=== PATIENT | female | born 1985 | race Caucasian/White ===

== ENCOUNTER 2017-05-16 18:57 | Emergency (ER) | payer MEDICAID ==
--- NOTE | 2017-05-16 21:38 | EDM.PDOC ---
ED HPI GENERAL MEDICAL PROBLEM - General Chief Complaint: ENT Problem Stated Complaint: TOOTH PAIN RT SIDE Time Seen by Provider: 05/16/17 20:48 Source of Information: Reports: Patient History Limitations: Reports: No Limitations - History of Present Illness INITIAL COMMENTS - FREE TEXT/NARRATIVE: This patient comes in for the pain to the right lower jaw. It's been going on for a couple weeks and she was seen recently and put on an antibiotic. She doesn 't have anything for pain. She's supposed to see the dentist on June 05 but says that she is nearly disabled because of the pain. She says there is a hole in one of her teeth but she doesn't really know which one it is - Related Data Allergies Allergy/AdvReac Type Severity Reaction Status Date / Time Penicillins Allergy Hives Verified 05/16/17 20:18 Sulfa (Sulfonamide Allergy Hives Verified 05/16/17 20:18 Antibiotics) Home Meds: Home Meds Cetirizine [ZyrTEC] 10 mg PO DAILY 05/16/17 [History] Cholecalciferol (Vitamin D3) [Vitamin D] 5,000 unit PO DAILY 05/16/17 [History] Cranberry Conc/C/Bacill Coag [Cranberry Tablet] 1 each PO DAILY 05/16/17 [ History] Cyanocobalamin (Vitamin B12) [Vitamin B12] 1,000 mcg PO DAILY 05/16/17 [History] Escitalopram [Lexapro] 10 mg PO DAILY 05/16/17 [History] Fluticasone Propionate [Flonase Allergy Relief] 9.9 ml NS ASDIRECTED 05/16/17 [ History] Gabapentin [Neurontin] 300 mg PO TID 05/16/17 [History] LORazepam [Ativan] 1 mg PO Q6HR 05/16/17 [History] Levothyroxine [Levothroid] 137 mcg PO DAILY 05/16/17 [History] Magnesium 250 mg PO DAILY 05/16/17 [History] Omeprazole 20 mg PO DAILY 05/16/17 [History] Phentermine HCl 37.5 mg PO DAILY 05/16/17 [History] Promethazine [Phenergan] 12.5 mg PO Q6H PRN 05/16/17 [History] Propranolol [Inderal LA] 60 mg PO DAILY 05/16/17 [History] metFORMIN [Glucophage] 500 mg PO DAILY 05/16/17 [History] traZODone 50 mg PO BEDTIME 05/16/17 [History] Past Medical History Respiratory History: Reports: Other (See Below) Other Respiratory History: Feels like she is SOB at times just sitting on the couch Gastrointestinal History: Reports: GERD Genitourinary History: Reports: UTI, Recurrent 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 Neurological History: Reports: Head Trauma, Other (See Below) Other Neuro History: Found spot on brain that is leaking blood. Gets CT every 6 months Psychiatric History: Reports: Anxiety, Dementia, Panic Attack, Suicide Attempt Endocrine/Metabolic History: Reports: Hyperthyroidism, Obesity/BMI 30+, Other ( See Below) Other Endocrine/Metabolic History: Graves disease - Infectious Disease History Infectious Disease History: Reports: Chicken Pox - Past Surgical History HEENT Surgical History: Reports: Other (See Below) Other HEENT Surgeries/Procedures: nasal surgery on Jun 02 2017 Respiratory Surgical History: Reports: None Female Surgical History: Reports: Section, Hysterectomy Endocrine Surgical History: Reports: Thyroidectomy Musculoskeletal Surgical History: Reports: None Social & Family History - Tobacco Use Smoking Status *Q: Current Every Day Smoker Years of Tobacco use: 15 Packs/Tins Daily: 0.5 Second Hand Smoke Exposure: Yes - Caffeine Use Caffeine Use: Reports: Coffee, Soda - Recreational Drug Use Recreational Drug Use: No ED ROS ENT - Review of Systems Review Of Systems: ROS reveals no pertinent complaints other than HPI. ED EXAM, ENT - Physical Exam Exam: See Below Exam Limited By: No Limitations General Appearance: Alert, WD/WN, Mild Distress Eye Exam: Bilateral Eye: Normal Inspection Mouth/Throat: Other (No obvious dental caries or abscess are seen. There is some diffuse tenderness to the right mandible.) Course - Vital Signs Last Recorded V/S: Last Vital Signs Temp 35.7 C 05/16/17 20:11 Pulse 75 05/16/17 20:11 Resp 16 05/16/17 20:11 BP 112/66 05/16/17 20:11 Pulse Ox 98 05/16/17 20:11 Departure - Departure Time of Disposition: 21:36 Disposition: Home, Self-Care 01 Condition: Fair Clinical Impression: Pain, dental - Discharge Information Referrals: Tobin Villarreal PA [Primary Care Provider] - Forms: ED Department Discharge Additional Instructions: Follow-up in clinic tomorrow morning. For pain take Percocet 5/325 (#15 tablets ) one or 2 every 4 hours as needed. This medication can cause sedation and impair driving. Continue the antibiotic
== END 2017-05-16 21:45 | disposition home or self-care (01) ==
LOC: JP.ED 18:57
DX: K08.89 Other specified disorders of teeth and supporting structures (principal); K21.9 Gastro-esophageal reflux disease without esophagitis; E66.9 Obesity, unspecified; F17.210 Nicotine dependence, cigarettes, uncomplicated; Z88.2 Allergy status to sulfonamides; Z88.0 Allergy status to penicillin; Z79.899 Other long term (current) drug therapy; Z79.84 Long term (current) use of oral hypoglycemic drugs
CPT/HCPCS: 99283

== ENCOUNTER 2017-05-20 00:57 | Emergency (ER) | payer MEDICAID ==
[2017-05-20] MEDS ORDERED: Ketorolac 60 MG/2 ML SDV IM ONE (01:38)
[2017-05-20] MEDS ORDERED: Acetaminophen/Codeine 300-30 MG Tab PO ONE (01:38)
--- NOTE | 2017-05-20 01:44 | EDM.PDOC ---
ED HPI GENERAL MEDICAL PROBLEM - General Chief Complaint: ENT Problem Stated Complaint: MOUTH & TEETH PAIN Time Seen by Provider: 05/20/17 01:33 Source of Information: Reports: Patient History Limitations: Reports: No Limitations - History of Present Illness INITIAL COMMENTS - FREE TEXT/NARRATIVE: pt has a painful tooth in the rt upper incisor area. She also has a sore throat. She has been uncomfortable for a few days with the tooth. Onset: Gradual Duration: Hour(s): Location: Reports: Face, Other ( throat. ) Associated Symptoms: Reports: No Other Symptoms right tooth Pain Score (Numeric/FACES): 8 - Related Data Allergies Allergy/AdvReac Type Severity Reaction Status Date / Time Penicillins Allergy Hives Verified 05/20/17 01:17 Sulfa (Sulfonamide Allergy Hives Verified 05/20/17 01:17 Antibiotics) Home Meds: Home Meds Cetirizine [ZyrTEC] 10 mg PO DAILY 05/16/17 [History] Cholecalciferol (Vitamin D3) [Vitamin D] 5,000 unit PO DAILY 05/16/17 [History] Cranberry Conc/C/Bacill Coag [Cranberry Tablet] 1 each PO DAILY 05/16/17 [ History] Cyanocobalamin (Vitamin B12) [Vitamin B12] 1,000 mcg PO DAILY 05/16/17 [History] Escitalopram [Lexapro] 10 mg PO DAILY 05/16/17 [History] Fluticasone Propionate [Flonase Allergy Relief] 9.9 ml NS ASDIRECTED 05/16/17 [ History] Gabapentin [Neurontin] 300 mg PO TID 05/16/17 [History] LORazepam [Ativan] 1 mg PO Q6HR 05/16/17 [History] Levothyroxine [Levothroid] 137 mcg PO DAILY 05/16/17 [History] Magnesium 250 mg PO DAILY 05/16/17 [History] Omeprazole 20 mg PO DAILY 05/16/17 [History] Phentermine HCl 37.5 mg PO DAILY 05/16/17 [History] Promethazine [Phenergan] 12.5 mg PO Q6H PRN 05/16/17 [History] Propranolol [Inderal LA] 60 mg PO DAILY 05/16/17 [History] metFORMIN [Glucophage] 500 mg PO DAILY 05/16/17 [History] traZODone 50 mg PO BEDTIME 05/16/17 [History] Past Medical History Respiratory History: Reports: Other (See Below) Other Respiratory History: Feels like she is SOB at times just sitting on the couch Gastrointestinal History: Reports: GERD Genitourinary History: Reports: UTI, Recurrent 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 Neurological History: Reports: Head Trauma, Other (See Below) Other Neuro History: Found spot on brain that is leaking blood. Gets CT every 6 months Psychiatric History: Reports: Anxiety, Dementia, Panic Attack, Suicide Attempt Endocrine/Metabolic History: Reports: Hyperthyroidism, Obesity/BMI 30+, Other ( See Below) Other Endocrine/Metabolic History: Graves disease - Infectious Disease History Infectious Disease History: Reports: Chicken Pox - Past Surgical History HEENT Surgical History: Reports: Other (See Below) Other HEENT Surgeries/Procedures: nasal surgery on Jun 02 2017 Respiratory Surgical History: Reports: None Female Surgical History: Reports: Section, Hysterectomy Endocrine Surgical History: Reports: Thyroidectomy Musculoskeletal Surgical History: Reports: None Social & Family History - Tobacco Use Smoking Status *Q: Current Every Day Smoker Years of Tobacco use: 15 Packs/Tins Daily: 0.5 Second Hand Smoke Exposure: Yes - Caffeine Use Caffeine Use: Reports: None - Recreational Drug Use Recreational Drug Use: No ED ROS ENT - Review of Systems Review Of Systems: See Below Constitutional: Reports: Decreased Appetite HEENT: Reports: Dental Pain, Throat Pain, Throat Swelling Respiratory: Reports: No Symptoms Cardiovascular: Reports: No Symptoms Endocrine: Reports: No Symptoms GI/Abdominal: Reports: No Symptoms : Reports: No Symptoms Musculoskeletal: Reports: No Symptoms ED EXAM, ENT - Physical Exam Exam: See Below Text/Narrative:: pt arrived with pain in her rt upper tooth area. She also has a sore throat. Exam Limited By: No Limitations General Appearance: Alert, Anxious, Mild Distress Ears: Normal TMs Nose: Nasal Deformity Mouth/Throat: Dental Tenderness, Throat Pain, Throat Swelling, Tonsillar Erythema, Other (pt has a tender upper incisor area. pt has coating on her throat which looks like it could be yeast. She is on flonase. ) Head: Atraumatic Neck: Lymphadenopathy (R), Lymphadenopathy (L) Respiratory/Chest: No Respiratory Distress Cardiovascular: Regular Rate, Rhythm GI/Abdominal: Soft, Non-Tender Course - Vital Signs Last Recorded V/S: Last Vital Signs Temp 35.5 C 05/20/17 01:18 Pulse 76 05/20/17 01:18 Resp 15 05/20/17 01:18 BP 118/76 05/20/17 01:18 Pulse Ox 98 05/20/17 01:18 - Orders/Labs/Meds Orders: Active Orders 24 hr Category Date Time Status STREP SCRN A RAPID W CULT CONF [RM] Stat Lab 05/20/17 01:24 Ordered - Re-Assessments/Exams Free Text/Narrative Re-Assessment/Exam: 05/20/17 01:46 pt was given torodol 60mg im and tylenol 3 1 tab for pain. Departure - Departure Time of Disposition: 01:47 Disposition: Home, Self-Care 01 Condition: Fair Clinical Impression: Infected tooth, Acute pharyngitis - Discharge Information Referrals: PCP,None [Primary Care Provider] - Care Plan Goals: mycostatin susp irrigate mouth and throat tid, clindomycin 300mg tid, tylenol 3 1 tab q6h prn for pain dental referal for monMay 24. - My Orders Last 24 Hours: My Active Orders 05/20/17 01:24 STREP SCRN A RAPID W CULT CONF [RM] Stat - Assessment/Plan Last 24 Hours: My Active Orders 05/20/17 01:24 STREP SCRN A RAPID W CULT CONF [RM] Stat
== END 2017-05-20 02:00 | disposition home or self-care (01) ==
LOC: JP.ED 00:57
DX: K04.7 Periapical abscess without sinus (principal); J02.9 Acute pharyngitis, unspecified; F17.210 Nicotine dependence, cigarettes, uncomplicated; Z79.899 Other long term (current) drug therapy; Z88.0 Allergy status to penicillin; Z88.2 Allergy status to sulfonamides
CPT/HCPCS: 87081; 87430; 99283; A9270; J1885; 96372

== ENCOUNTER 2017-06-04 15:12 | Emergency (ER) | payer MEDICAID ==
--- NOTE | 2017-06-04 16:00 | EDM.PDOC ---
ED HPI GENERAL MEDICAL PROBLEM - General Chief Complaint: General Stated Complaint: WOUND PROBLEMS Time Seen by Provider: 06/04/17 15:57 Source of Information: Reports: Patient, Family, RN Notes Reviewed History Limitations: Reports: No Limitations - History of Present Illness INITIAL COMMENTS - FREE TEXT/NARRATIVE: 31-year-old female presents emergency department day complaint of facial pain she recently underwent sinus surgery has packing in place on the left naris she is scheduled to have that removed tomorrow, she uses using hydrocodone however it makes her sick to her stomach and does not want to take this pain medication nose Pain Score (Numeric/FACES): 9 - Related Data Allergies Allergy/AdvReac Type Severity Reaction Status Date / Time clindamycin Allergy Swelling Verified 06/04/17 15:32 Penicillins Allergy Hives Verified 05/20/17 01:17 Sulfa (Sulfonamide Allergy Hives Verified 05/20/17 01:17 Antibiotics) Home Meds: Home Meds Cetirizine [ZyrTEC] 10 mg PO DAILY 05/16/17 [History] Cholecalciferol (Vitamin D3) [Vitamin D] 5,000 unit PO DAILY 05/16/17 [History] Cranberry Conc/C/Bacill Coag [Cranberry Tablet] 1 each PO DAILY 05/16/17 [ History] Cyanocobalamin (Vitamin B12) [Vitamin B12] 1,000 mcg PO DAILY 05/16/17 [History] Escitalopram [Lexapro] 10 mg PO DAILY 05/16/17 [History] Fluticasone Propionate [Flonase Allergy Relief] 9.9 ml NS ASDIRECTED 05/16/17 [ History] Gabapentin [Neurontin] 300 mg PO TID 05/16/17 [History] LORazepam [Ativan] 1 mg PO Q6HR 05/16/17 [History] Levothyroxine [Levothroid] 137 mcg PO DAILY 05/16/17 [History] Magnesium 250 mg PO DAILY 05/16/17 [History] Omeprazole 20 mg PO DAILY 05/16/17 [History] Phentermine HCl 37.5 mg PO DAILY 05/16/17 [History] Promethazine [Phenergan] 12.5 mg PO Q6H PRN 05/16/17 [History] Propranolol [Inderal LA] 60 mg PO DAILY 05/16/17 [History] metFORMIN [Glucophage] 500 mg PO DAILY 05/16/17 [History] traZODone 50 mg PO BEDTIME 05/16/17 [History] Cephalexin 500 mg PO QID 06/04/17 [History] Hydrocodone/Acetaminophen [Hydrocodon-Acetaminoph 7.5-325] 1 tab PO Q6H PRN [History] Past Medical History Respiratory History: Reports: Other (See Below) Other Respiratory History: Feels like she is SOB at times just sitting on the couch Gastrointestinal History: Reports: GERD Genitourinary History: Reports: UTI, Recurrent 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 Neurological History: Reports: Head Trauma, Other (See Below) Other Neuro History: Found spot on brain that is leaking blood. Gets CT every 6 months Psychiatric History: Reports: Anxiety, Dementia, Panic Attack, Suicide Attempt, Other (See Below) Endocrine/Metabolic History: Reports: Hyperthyroidism, Obesity/BMI 30+, Other ( See Below) Other Endocrine/Metabolic History: Graves disease - Infectious Disease History Infectious Disease History: Reports: Chicken Pox - Past Surgical History HEENT Surgical History: Reports: Other (See Below) Other HEENT Surgeries/Procedures: nasal surgery on Jun 02 2017 Respiratory Surgical History: Reports: None Female Surgical History: Reports: Section, Hysterectomy Endocrine Surgical History: Reports: Thyroidectomy Musculoskeletal Surgical History: Reports: None Social & Family History - Tobacco Use Smoking Status *Q: Current Every Day Smoker Years of Tobacco use: 10 Packs/Tins Daily: 0.5 Second Hand Smoke Exposure: Yes - Caffeine Use Caffeine Use: Reports: None - Recreational Drug Use Recreational Drug Use: No ED ROS GENERAL - Review of Systems Review Of Systems: See Below Constitutional: Reports: No Symptoms HEENT: Reports: Nose Pain ED EXAM, GENERAL - Physical Exam Exam: See Below Free Text/Narrative:: Examination of the nose mucosa is moist and pink on the right side left side is packed there is tenderness over the frontal and maxillary sinuses predominantly on the left Exam Limited By: No Limitations General Appearance: Alert, WD/WN, No Apparent Distress Course - Vital Signs Last Recorded V/S: Last Vital Signs Temp 97 F 06/04/17 15:39 Pulse 98 01/14/18 15:39 Resp 12 06/04/17 15:39 BP 120/79 06/04/17 15:39 Pulse Ox 95 06/04/17 15:39 Departure - Departure Time of Disposition: 15:59 Disposition: Home, Self-Care 01 Condition: Good Clinical Impression: Encounter for removal of nasal pack - Discharge Information Referrals: Tobin iVllarreal PA [Primary Care Provider] - Additional Instructions: Use Percocet as needed for pain control use bulb suction for comfort care, follow-up with your ENT at scheduled appointment - Assessment/Plan Plan: Assessment Acuity = acute Site and laterality = nasal pain Etiology = secondary to sinus surgery Manifestations = none Location of injury = Home Lab values = none Plan Discharge home Percocet 5/325 one tab by mouth 3 times a day when necessary she is also provided a nasal suction device for the right naris for comfort care he follow-up appointment with ENT tomorrow This note was dictated using [employer] voice recognition software please call with any questions on syntax or edward.
== END 2017-06-04 16:10 | disposition home or self-care (01) ==
LOC: JP.ED 15:12
DX: Z48.00 Encounter for change or removal of nonsurgical wound dressing (principal); Z88.8 Allergy status to other drugs, medicaments and biological substances; Z88.2 Allergy status to sulfonamides; Z88.0 Allergy status to penicillin; Z79.899 Other long term (current) drug therapy; F17.210 Nicotine dependence, cigarettes, uncomplicated
CPT/HCPCS: 99282; 99283

== ENCOUNTER 2017-06-09 01:33 | Emergency (ER) | payer MEDICAID ==
[2017-06-09] MEDS ORDERED: Ketorolac 60 MG/2 ML SDV IM ONE (03:13)
--- NOTE | 2017-06-09 03:18 | EDM.PDOC ---
ED HPI GENERAL MEDICAL PROBLEM - General Chief Complaint: Lower Extremity Injury/Pain Stated Complaint: LOW BACK / HIP PAIN Time Seen by Provider: 06/09/17 03:06 Source of Information: Reports: Patient, Family, RN Notes Reviewed History Limitations: Reports: No Limitations - History of Present Illness INITIAL COMMENTS - FREE TEXT/NARRATIVE: 31-year-old female presents to emergency department day complaint of bilateral hip pain, she has a history of chronic hip pain secondary to trauma many years ago she had a flareup this evening and is unable to sleep and is having difficulty ambulating no loss of bowel or bladder no numbness and tingling in the feet Hips Pain Score (Numeric/FACES): 9 - Related Data Allergies Allergy/AdvReac Type Severity Reaction Status Date / Time clindamycin Allergy Swelling Verified 06/09/17 02:23 Penicillins Allergy Hives Verified 06/09/17 02:23 Sulfa (Sulfonamide Allergy Hives Verified 06/09/17 02:23 Antibiotics) Home Meds: Home Meds Cetirizine [ZyrTEC] 10 mg PO DAILY 05/16/17 [History] Cholecalciferol (Vitamin D3) [Vitamin D] 5,000 unit PO DAILY 05/16/17 [History] Cranberry Conc/C/Bacill Coag [Cranberry Tablet] 1 each PO DAILY 05/16/17 [ History] Cyanocobalamin (Vitamin B12) [Vitamin B12] 1,000 mcg PO DAILY 05/16/17 [History] Escitalopram [Lexapro] 10 mg PO DAILY 05/16/17 [History] Fluticasone Propionate [Flonase Allergy Relief] 9.9 ml NS ASDIRECTED 05/16/17 [ History] Gabapentin [Neurontin] 300 mg PO TID 05/16/17 [History] LORazepam [Ativan] 1 mg PO Q6HR 05/16/17 [History] Levothyroxine [Levothroid] 137 mcg PO DAILY 05/16/17 [History] Magnesium 250 mg PO DAILY 05/16/17 [History] Omeprazole 20 mg PO DAILY 05/16/17 [History] Phentermine HCl 37.5 mg PO DAILY 05/16/17 [History] Promethazine [Phenergan] 12.5 mg PO Q6H PRN 05/16/17 [History] Propranolol [Inderal LA] 60 mg PO DAILY 05/16/17 [History] metFORMIN [Glucophage] 500 mg PO DAILY 05/16/17 [History] traZODone 50 mg PO BEDTIME 05/16/17 [History] Cephalexin 500 mg PO QID 06/04/17 [History] Hydrocodone/Acetaminophen [Hydrocodon-Acetaminoph 7.5-325] 1 tab PO Q6H PRN [History] Acetaminophen/oxyCODONE [Percocet 325-5 MG] 1 tab PO Q6HR PRN 06/09/17 [History] Past Medical History Respiratory History: Reports: Other (See Below) Other Respiratory History: Feels like she is SOB at times just sitting on the couch Gastrointestinal History: Reports: GERD Genitourinary History: Reports: UTI, Recurrent 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 Neurological History: Reports: Head Trauma, Other (See Below) Other Neuro History: Found spot on brain that is leaking blood. Gets CT every 6 months Psychiatric History: Reports: Anxiety, Dementia, Panic Attack, Suicide Attempt, Other (See Below) Endocrine/Metabolic History: Reports: Hyperthyroidism, Obesity/BMI 30+, Other ( See Below) Other Endocrine/Metabolic History: Graves disease - Infectious Disease History Infectious Disease History: Reports: Chicken Pox - Past Surgical History HEENT Surgical History: Reports: Other (See Below) Other HEENT Surgeries/Procedures: nasal surgery on Jun 02 2017 Respiratory Surgical History: Reports: None Female Surgical History: Reports: Section, Hysterectomy Endocrine Surgical History: Reports: Thyroidectomy Musculoskeletal Surgical History: Reports: None Social & Family History - Tobacco Use Smoking Status *Q: Current Every Day Smoker Years of Tobacco use: 10 Packs/Tins Daily: 0.5 Second Hand Smoke Exposure: Yes - Caffeine Use Caffeine Use: Reports: Soda - Recreational Drug Use Recreational Drug Use: No Review of Systems - Review of Systems Review Of Systems: See Below Musculoskeletal: Reports: Joint Swelling (Bilateral hip pain) Neurological: Reports: No Symptoms ED EXAM, GENERAL - Physical Exam Exam: See Below Free Text/Narrative:: Examination of the hips she is point tender over the greater trochanter right greater than left otherwise pelvic rock's is negative, examination of the back there is no specific tenderness spinally or paraspinally in the lumbar region Exam Limited By: No Limitations General Appearance: Alert, WD/WN, No Apparent Distress Respiratory/Chest: No Respiratory Distress Course - Vital Signs Last Recorded V/S: Last Vital Signs Temp 98.1 F 06/09/17 02:17 Pulse 78 06/09/17 02:17 Resp 14 06/09/17 02:17 BP 120/77 06/09/17 02:17 Pulse Ox - Orders/Labs/Meds Orders: Active Orders 24 hr Category Date Time Status Ketorolac [Toradol] Med 06/09/17 03:13 Once 60 mg IM ONETIME ONE Departure - Departure Time of Disposition: 03:17 Disposition: Home, Self-Care 01 Condition: Good Clinical Impression: Hip pain Qualifiers: Laterality: bilateral Qualified Code(s): M25.551 - Pain in right hip; M25.552 - Pain in left hip; M25.552 - Pain in left hip - Discharge Information Referrals: Tobin Villarreal PA [Primary Care Provider] - Additional Instructions: Continue to use ibuprofen as needed for pain control use Percocet for breakthrough pain, recommend following up with your primary care the next 3-5 days for reevaluation also consider referral to orthopedics, call return to the emergency department worsening of symptoms - My Orders Last 24 Hours: My Active Orders 06/09/17 03:13 Ketorolac [Toradol] 60 mg IM ONETIME ONE - Assessment/Plan Last 24 Hours: My Active Orders 06/09/17 03:13 Ketorolac [Toradol] 60 mg IM ONETIME ONE Plan: Assessment Acuity = chronic Site and laterality = bilateral hip pain Etiology = secondary to trauma Manifestations = none Location of injury = Home Lab values = none Plan Toradol injection provided 60 mg 1, prescription written for Percocet 5/325 one tab by mouth 3 times a day when necessary total #10 recommend she follow-up with her primary care in the next 3-5 days for reevaluation and possibly referral to orthopedics This note was dictated using [employer] voice recognition software please call with any questions on syntax or edward.
== END 2017-06-09 03:35 | disposition home or self-care (01) ==
LOC: JP.ED 01:33
DX: M25.551 Pain in right hip (principal); M25.552 Pain in left hip; F17.210 Nicotine dependence, cigarettes, uncomplicated; Z88.1 Allergy status to other antibiotic agents; Z88.0 Allergy status to penicillin; Z88.2 Allergy status to sulfonamides; Z79.899 Other long term (current) drug therapy; Z79.84 Long term (current) use of oral hypoglycemic drugs
CPT/HCPCS: 96372; 99283; J1885

== ENCOUNTER 2017-09-11 19:29 | Emergency (ER) | payer MEDICAID ==
--- NOTE | 2017-09-11 21:35 | EDM.PDOC ---
ED HPI GENERAL MEDICAL PROBLEM - General Chief Complaint: Skin Complaint Stated Complaint: RASH Time Seen by Provider: 09/11/17 21:19 Source of Information: Reports: Patient History Limitations: Reports: No Limitations - History of Present Illness INITIAL COMMENTS - FREE TEXT/NARRATIVE: 32-year-old female presents emergency department today with a rash on the left side of her neck she states this has occurred today it is itchy no other symptoms she denies any new products however it's possible there may have been some contact with her ear buds with may have had a chemical on them - Related Data Allergies Allergy/AdvReac Type Severity Reaction Status Date / Time clindamycin Allergy Swelling Verified 06/09/17 02:23 Penicillins Allergy Hives Verified 06/09/17 02:23 Sulfa (Sulfonamide Allergy Hives Verified 06/09/17 02:23 Antibiotics) Home Meds: Home Meds Cetirizine [ZyrTEC] 10 mg PO DAILY 05/16/17 [History] Cholecalciferol (Vitamin D3) [Vitamin D] 5,000 unit PO DAILY 05/16/17 [History] Cranberry Conc/C/Bacill Coag [Cranberry Tablet] 1 each PO DAILY 05/16/17 [ History] Cyanocobalamin (Vitamin B12) [Vitamin B12] 1,000 mcg PO DAILY 05/16/17 [History] Escitalopram [Lexapro] 10 mg PO DAILY 05/16/17 [History] Fluticasone Propionate [Flonase Allergy Relief] 9.9 ml NS ASDIRECTED 05/16/17 [ History] Gabapentin [Neurontin] 300 mg PO TID 05/16/17 [History] LORazepam [Ativan] 1 mg PO Q6HR 05/16/17 [History] Levothyroxine [Levothroid] 137 mcg PO DAILY 05/16/17 [History] Magnesium 250 mg PO DAILY 05/16/17 [History] Omeprazole 20 mg PO DAILY 05/16/17 [History] Phentermine HCl 37.5 mg PO DAILY 05/16/17 [History] Promethazine [Phenergan] 12.5 mg PO Q6H PRN 05/16/17 [History] Propranolol [Inderal LA] 60 mg PO DAILY 05/16/17 [History] metFORMIN [Glucophage] 500 mg PO DAILY 05/16/17 [History] traZODone 50 mg PO BEDTIME 05/16/17 [History] Cephalexin 500 mg PO QID 06/04/17 [History] Hydrocodone/Acetaminophen [Hydrocodon-Acetaminoph 7.5-325] 1 tab PO Q6H PRN [History] Acetaminophen/oxyCODONE [Percocet 325-5 MG] 1 tab PO Q6HR PRN 06/09/17 [History] Past Medical History Respiratory History: Reports: Other (See Below) Other Respiratory History: Feels like she is SOB at times just sitting on the couch Gastrointestinal History: Reports: GERD Genitourinary History: Reports: UTI, Recurrent 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 Neurological History: Reports: Head Trauma, Other (See Below) Other Neuro History: Found spot on brain that is leaking blood. Gets CT every 6 months Psychiatric History: Reports: Anxiety, Dementia, Panic Attack, Suicide Attempt, Other (See Below) Endocrine/Metabolic History: Reports: Hyperthyroidism, Obesity/BMI 30+, Other ( See Below) Other Endocrine/Metabolic History: Graves disease - Infectious Disease History Infectious Disease History: Reports: Chicken Pox - Past Surgical History HEENT Surgical History: Reports: Other (See Below) Other HEENT Surgeries/Procedures: nasal surgery on Jun 02 2017 Respiratory Surgical History: Reports: None Female Surgical History: Reports: Section, Hysterectomy Endocrine Surgical History: Reports: Thyroidectomy Musculoskeletal Surgical History: Reports: None Social & Family History - Tobacco Use Smoking Status *Q: Current Every Day Smoker Years of Tobacco use: 10 Packs/Tins Daily: 0.5 Second Hand Smoke Exposure: Yes - Caffeine Use Caffeine Use: Reports: Soda - Recreational Drug Use Recreational Drug Use: No ED ROS GENERAL - Review of Systems Review Of Systems: See Below Constitutional: Reports: No Symptoms Skin: Reports: Pruritis, Rash ED EXAM, SKIN/RASH Exam: See Below Text/Narrative:: Examination of the integument system there is a patch approximately 10 cm x 5 cm along the lateral aspect of the neck just below the ear on the left side Exam Limited By: No Limitations General Appearance: Alert, WD/WN, No Apparent Distress Respiratory/Chest: No Respiratory Distress Course - Vital Signs Last Recorded V/S: Last Vital Signs Temp 96.7 F 09/11/17 20:33 Pulse 72 09/11/17 20:33 Resp 17 09/11/17 20:33 BP 111/56 L 09/11/17 20:33 Pulse Ox 96 09/11/17 20:33 Departure - Departure Time of Disposition: 21:36 Disposition: Home, Self-Care 01 Condition: Good Clinical Impression: Contact dermatitis Qualifiers: Contact dermatitis type: irritant Contact dermatitis trigger: unspecified trigger Qualified Code(s): L24.9 - Irritant contact dermatitis, unspecified cause - Discharge Information Referrals: Tobin Villarreal PA [Primary Care Provider] - Additional Instructions: Continue to use the steroid cream until clear, Please followup with your primary care provider in 3-5 days if not better, please call return to the emergency department with worsening of symptoms. - Assessment/Plan Plan: Assessment Acuity = acute Site and laterality = contact dermatitis Etiology = unknown etiology Manifestations = none Location of injury = Home Lab values = none Plan Try triamcinolone cream 1% applied to affected area 3 times a day until clear, follow-up with primary care in 3-5 days for reevaluation if not better This note was dictated using [employer] voice recognition software please call with any questions on syntax or edward.
== END 2017-09-11 22:11 | disposition home or self-care (01) ==
LOC: JP.ED 19:29
DX: L24.9 Irritant contact dermatitis, unspecified cause (principal); F17.210 Nicotine dependence, cigarettes, uncomplicated; Z88.1 Allergy status to other antibiotic agents; Z88.0 Allergy status to penicillin; Z88.2 Allergy status to sulfonamides; Z79.899 Other long term (current) drug therapy; Z79.84 Long term (current) use of oral hypoglycemic drugs
CPT/HCPCS: 99283

== ENCOUNTER 2017-10-28 16:46 | Emergency (ER) | payer MEDICAID ==
[2017-10-28] MEDS ORDERED: Aspirin 81 MG Tab.Chew ONE (16:54)
[2017-10-28] MEDS ORDERED: Aspirin 81 MG Tab.Chew PO ONE (17:05)
--- NOTE | 2017-10-28 17:48 | EDM.PDOC ---
ED HPI GENERAL MEDICAL PROBLEM - General Chief Complaint: Chest Pain Stated Complaint: CHEST PAIN Time Seen by Provider: 10/28/17 17:10 Source of Information: Reports: Patient History Limitations: Reports: No Limitations - History of Present Illness INITIAL COMMENTS - FREE TEXT/NARRATIVE: Joie presents with sudden onset sharp chest pain to epigastric and left chest area today while at rest visiting. Onset: Today - Related Data Allergies Allergy/AdvReac Type Severity Reaction Status Date / Time clindamycin Allergy Swelling Verified 06/09/17 02:23 Penicillins Allergy Hives Verified 06/09/17 02:23 Sulfa (Sulfonamide Allergy Hives Verified 06/09/17 02:23 Antibiotics) Home Meds: Home Meds Cetirizine [ZyrTEC] 10 mg PO DAILY 05/16/17 [History] Cholecalciferol (Vitamin D3) [Vitamin D] 5,000 unit PO DAILY 05/16/17 [History] Cranberry Conc/C/Bacill Coag [Cranberry Tablet] 1 each PO DAILY 05/16/17 [ History] Cyanocobalamin (Vitamin B12) [Vitamin B12] 1,000 mcg PO DAILY 05/16/17 [History] Escitalopram [Lexapro] 10 mg PO DAILY 05/16/17 [History] Fluticasone Propionate [Flonase Allergy Relief] 9.9 ml NS ASDIRECTED 05/16/17 [ History] Gabapentin [Neurontin] 300 mg PO TID 05/16/17 [History] LORazepam [Ativan] 1 mg PO Q6HR 05/16/17 [History] Levothyroxine [Levothroid] 137 mcg PO DAILY 05/16/17 [History] Magnesium 250 mg PO DAILY 05/16/17 [History] Omeprazole 40 mg PO DAILY 05/16/17 [History] Promethazine [Phenergan] 12.5 mg PO Q6H PRN 05/16/17 [History] Propranolol [Inderal LA] 60 mg PO DAILY 05/16/17 [History] metFORMIN [Glucophage] 500 mg PO DAILY 05/16/17 [History] traZODone 50 mg PO BEDTIME 05/16/17 [History] Past Medical History Respiratory History: Reports: Asthma, Other (See Below) Other Respiratory History: Feels like she is SOB at times just sitting on the couch Gastrointestinal History: Reports: GERD Genitourinary History: Reports: UTI, Recurrent 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 Neurological History: Reports: Head Trauma, Other (See Below) Other Neuro History: Found spot on brain that is leaking blood. Gets CT every 6 months Psychiatric History: Reports: Anxiety, Depression, Panic Attack, Suicide Attempt , Other (See Below) Endocrine/Metabolic History: Reports: Hyperthyroidism, Obesity/BMI 30+, Other ( See Below) Other Endocrine/Metabolic History: Graves disease, thyroid ectomy 2013 - Infectious Disease History Infectious Disease History: Reports: Chicken Pox - Past Surgical History HEENT Surgical History: Reports: Other (See Below) Other HEENT Surgeries/Procedures: nasal surgery on Jun 02 2017 Respiratory Surgical History: Reports: None Female Surgical History: Reports: Section, Hysterectomy Endocrine Surgical History: Reports: Thyroidectomy Musculoskeletal Surgical History: Reports: None Social & Family History - Family History Family Medical History: Noncontributory - Tobacco Use Smoking Status *Q: Current Every Day Smoker Years of Tobacco use: 16 Packs/Tins Daily: 0.5 - Caffeine Use Caffeine Use: Reports: Soda ED ROS GENERAL - Review of Systems Review Of Systems: See Below Constitutional: Denies: Fever, Chills, Malaise, Weakness, Night Sweats, Diaphoresis HEENT: Reports: No Symptoms Respiratory: Denies: Shortness of Breath, Wheezing, Cough, Sputum, Hemoptysis Cardiovascular: Reports: Chest Pain, Palpitations. Denies: Blood Pressure Problem, Dyspnea on Exertion, Edema, Lightheadedness, PND, Syncope Endocrine: Reports: No Symptoms GI/Abdominal: Reports: Nausea. Denies: Abdominal Pain, Constipation, Diarrhea, Distension, Hematemesis, Hematochezia, Vomiting : Reports: No Symptoms Musculoskeletal: Reports: No Symptoms Skin: Denies: Bruising, Pruritis, Rash, Erythema, Wound, Lesions Neurological: Reports: No Symptoms Psychiatric: Reports: No Symptoms Hematologic/Lymphatic: Reports: No Symptoms Immunologic: Reports: No Symptoms Free Text/Narrative/Comment: Patient reports family history: Father CAD, PR x 9 Grandmother CAD, PR Brother PR x 2 at 35 years old Mother history of palpitations. Patient also has a history of gastric ulcers and acid reflux for which she takes omeprazole 20mg PO BID. ED EXAM, GENERAL - Physical Exam Exam: See Below Exam Limited By: No Limitations General Appearance: Alert, WD/WN, No Apparent Distress Eye Exam: Bilateral Eye: EOMI, Normal Inspection, PERRL Ears: Normal External Exam, Normal Canal, Hearing Grossly Normal, Normal TMs Ear Exam: Bilateral Ear: Auricle Normal, Canal Normal, TM normal Nose: Normal Inspection, Normal Mucosa, No Blood Throat/Mouth: Normal Inspection, Normal Lips, Normal Gums, Normal Oropharynx, Normal Voice, No Airway Compromise Head: Atraumatic, Normocephalic Neck: Normal Inspection, Supple, Non-Tender, Full Range of Motion. No: Lymphadenopathy (R), Lymphadenopathy (L) Respiratory/Chest: No Respiratory Distress, Lungs Clear, Normal Breath Sounds, No Accessory Muscle Use, Other (Tenderness to left chest with palpation. ) Cardiovascular: Normal Peripheral Pulses, Regular Rate, Rhythm, No Edema, No Gallop, No Murmur, Other (pain reproduced with palpation to left chest and under breast/lateral breast. ) Peripheral Pulses: 2+: Radial (L), Radial (R), Dorsalis Pedis (L), Dorsalis Pedis (R) GI/Abdominal: Normal Bowel Sounds, Soft, Non-Tender, No Organomegaly, No Distention, No Mass Back Exam: Normal Inspection, Full Range of Motion. No: CVA Tenderness (R), CVA Tenderness (L) Extremities: Normal Inspection, Normal Range of Motion, Non-Tender, No Pedal Edema, Normal Capillary Refill Neurological: Alert, Oriented, CN II-XII Intact, Normal Cognition, Normal Gait, No Motor/Sensory Deficits Psychiatric: Normal Affect, Normal Mood Skin Exam: Warm, Dry, Intact, Normal Color, No Rash Lymphatic: No Adenopathy EKG INTERPRETATION EKG Date: 10/28/17 Rhythm: NSR Rate (Beats/Min): 85 [place]: Normal P-Wave: Present QRS: Normal ST-T: Normal QT: Normal Course - Vital Signs Last Recorded V/S: Last Vital Signs Temp 36.6 C 10/28/17 17:47 Pulse 78 10/28/17 17:47 Resp 23 H 10/28/17 17:47 BP 118/75 10/28/17 17:47 Pulse Ox 100 10/28/17 17:47 - Orders/Labs/Meds Orders: Active Orders 24 hr Category Date Time Status EKG Documentation Completion [RC] ASDIRECTED Care 10/28/17 18:16 Active EKG 12 Lead [EK] Routine Ther 10/28/17 18:15 Ordered Labs: Laboratory Tests 10/28/17 10/28/17 Range/Units 17:50 17:50 WBC 19.2 H (4.5-11.0) K/uL RBC 4.48 (3.30-5.50) M/uL Hgb 14.9 (12.0-15.0) g/dL Hct 42.9 (36.0-48.0) % MCV 96 (80-98) fL MCH 33 H (27-31) pg MCHC 35 (32-36) % Plt Count 299 (150-400) K/uL Neut % (Auto) 72 H (36-66) % Lymph % (Auto) 21 L (24-44) % Noble % (Auto) 6 (2-6) % Eos % (Auto) 1 L (2-4) % Baso % (Auto) 0 (0-1) % Sodium 138 L (140-148) mmol/L Potassium 3.8 (3.6-5.2) mmol/L Chloride 105 (100-108) mmol/L Carbon Dioxide 24 (21-32) mmol/L Anion Gap 12.8 (5.0-14.0) mmol/L BUN 15 (7-18) mg/dL Creatinine 1.0 (0.6-1.0) mg/dL Est Cr Clr Drug Dosing 60.38 mL/min Estimated GFR (MDRD) > 60 (>60) Glucose 87 (74-106) mg/dL Calcium 8.2 L (8.5-10.1) mg/dL Total Bilirubin 0.3 (0.2-1.0) mg/dL AST 17 (15-37) U/L ALT 20 (12-78) U/L Alkaline Phosphatase 94 (46-116) U/L Troponin I < 0.017 (0.000-0.056) ng/mL Total Protein 6.9 (6.4-8.2) g/dL Albumin 3.5 (3.4-5.0) g/dL Globulin 3.4 (2.3-3.5) g/dL Albumin/Globulin Ratio 1.0 L (1.2-2.2) TSH, Ultra Sensitive 24.273 H (0.358-3.740) uIU/mL Patient lab work, assessment, EKG discussed with Dr. Maki. He is in agreement with plan for patient discharge, adjustment of levothyroxine and her follow up with stress test. Patient advised, all her questions were answered. She is in agreement with plan. Meds: Medications Discontinued Medications Generic Name Dose Route Start Last Admin Trade Name Cecilia PRN Reason Stop Dose Admin Aspirin Confirm 10/28/17 16:54 10/28/17 17:07 Aspirin Administered 10/28/17 16:55 324 mg Dose Administration 324 mg .ROUTE .STK-MED ONE Aspirin 324 mg 10/28/17 17:05 Aspirin PO 10/28/17 17:06 ONETIME ONE - Re-Assessments/Exams Free Text/Narrative Re-Assessment/Exam: 10/28/17 17:50 [facility] contacted for information about recent hospitalization. Serial troponins completed on 10/18/17, all negative at 0.02. Noted that patient developed chest pain after taking zomig for migraine. Medication stopped. She was set up for an outpatient stress test which is scheduled MondayNovember 01. Last TSH, T3, T4 completed April, normal. Departure - Departure Time of Disposition: 18:41 Disposition: Home, Self-Care 01 Condition: Good Clinical Impression: Atypical chest pain, Hyperthyroidism Instructions: Nonspecific Chest Pain, [id number] Referrals: Tobin Villarreal PA [Primary Care Provider] - Forms: ED Department Discharge Additional Instructions: You have been evaluated and treated for atypical chest pain. Your troponin is negative, as it was with your recent hospitalization. Your TSH is elevated at 24.273 It would be best for you to increase your levothyroxine to 150mcg PO daily. Complete stress test as scheduled this Monday. Take acetaminophen for pain as needed. Return for any worsening in pain, fever, or issues breathing. - My Orders Last 24 Hours: My Active Orders 10/28/17 18:15 EKG 12 Lead [EK] Routine 10/28/17 18:16 EKG Documentation Completion [RC] ASDIRECTED - Assessment/Plan Last 24 Hours: My Active Orders 10/28/17 18:15 EKG 12 Lead [EK] Routine 06/09/18 18:16 EKG Documentation Completion [RC] ASDIRECTED Plan: Patient evaluated and treated for atypical chest pain. Troponin is negative, as it was with recent hospitalization. TSH is elevated at 24.273 It would be best to increase levothyroxine to 150mcg PO daily. Complete stress test as scheduled this Monday. Take acetaminophen for pain as needed. Return for any worsening in pain, fever, or issues breathing.
== END 2017-10-28 18:56 | disposition home or self-care (01) ==
LOC: JP.ED 16:46
DX: R07.89 Other chest pain (principal); E05.90 Thyrotoxicosis, unspecified without thyrotoxic crisis or storm; F41.9 Anxiety disorder, unspecified; F32.9 Major depressive disorder, single episode, unspecified; Z88.0 Allergy status to penicillin; Z88.1 Allergy status to other antibiotic agents; Z88.2 Allergy status to sulfonamides; Z79.899 Other long term (current) drug therapy
CPT/HCPCS: 36415; 80053; 84443; 84484; 85025; 93005; 99285; A9270